=== PATIENT | male | born 1980 | race Caucasian/White ===

== ENCOUNTER 2016-11-01 01:49 | Emergency (ER) | payer SELFPAY ==
[~2016-11-01] VITALS: Ht 162.6 cm; Wt 74.6 kg
[2016-11-01 01:54] VITALS: Ht 162.6 cm; Wt 74.6 kg
--- NOTE | 2016-11-01 03:37 | ERD ---
ER Documentation Chief Complaint Date/Time DATE: 11/01/16 TIME: 03:33 Chief Complaint chest pain since half hour ago HPI This is a 35-year-old male who presents to the ER with chest pain that started an hour and a half ago. Per family members patient's blood pressure went up to 140/90. Blood pressure then went down to 120/90. Patient then began to have sharp chest pain. Chest pain has improved since being in the ER. It is nonexertional. He has not tried anything for the pain. He also felt as if his left hand got numb. She denies any shortness of breath. Patient's brother at age 38 from a heart attack and his father also of a heart attack. Patient does admit to drinking and smoking. ROS 12 point review of systems was done, all negative except per HPI. Allergies Allergies: Coded Allergies: No Known Allergy (Unverified , 11/01/16) PMhx/Soc Medical and Surgical Hx: pt denies Medical Hx, pt denies Surgical Hx History of Surgery: Yes (Appendectomy) Anesthesia Reaction: No Hx Neurological Disorder: No Hx Respiratory Disorders: No Hx Cardiac Disorders: No Hx Psychiatric Problems: No Hx Miscellaneous Medical Probl: No Hx Alcohol Use: Yes Hx Substance Use: No Hx Tobacco Use: Yes Smoking Status: Current every day smoker Physical Exam Vitals Vital Signs Date Time Temp Pulse Resp B/P Pulse Ox O2 Delivery O2 Flow Rate FiO2 11/01/16 01:54 87.8 78 20 121/69 97 Physical Exam GENERAL: The patient is well developed and appropriate for usual state of health , in no apparent distress. HEENT: Atraumatic. Conjunctivae are pink. Pupils equal, round, and reactive to light. Extraocular muscles are grossly intact. Bilateral tympanic membranes are clear with no evidence of erythema, effusion or dulling of the light reflex. The oropharynx is clear with no erythema or exudates. NECK: C-spine is soft and supple. There is no cervical lymphadenopathy. CHEST: Clear to auscultation bilaterally. There are no rales, wheezes or rhonchi. HEART: Regular rate and rhythm. No murmurs, clicks, rubs or gallops. ABDOMEN: Soft, nontender and nondistended. Good bowel sounds. No rebound or guarding. No gross peritonitis. No gross organomegaly or masses. No Murillo sign or McBurney point tenderness. No pulsatile masses. BACK: No midline or flank tenderness. EXTREMITIES: Equal pulses bilaterally. There is no peripheral clubbing, cyanosis or edema. No focal swelling or erythema. Full range of motion. Grossly neurovascularly intact. NEURO: Alert and oriented. Cranial nerves II through XII are intact. Motor strength in all 4 extremities with 5/5 strength. Sensation grossly intact. Normal speech and gait. SKIN: There is no apparent rash or petechia. The skin is warm and dry. Procedures/MDM Differential diagnosis includes but is not limited to; STEMI, dissection, pneumothorax, PE, esophageal rupture, tamponade, pneumonia, pericarditis, GERD, musculoskeletal, endocarditis, anxiety. Patient did have a couple risk factors including family history of early heart attack and smoking. Because of this blood work was going to be done for the patient. EKG was normal at 82 beats per minutes no ST elevation or T-wave inversion. Read by Dr. Allen. Patient decided to leave AGAINST MEDICAL ADVICE. I discussed the risks versus benefits of leaving, his risks include heart attack and even . Patient understands this and he still wishes to leave. Patient signed AGAINST MEDICAL ADVICE form. Patient was fully capable of signing the AMA form was not altered and he was stable enough to make this decision. Patient was advised to return to the ER if symptoms worsen or continue as soon as possible. Departure Diagnosis: Primary Impression: Chest pain ANGELI SHULTZ Nov 01, 2016 03:37
== END 2016-11-01 04:15 | disposition left against medical advice (07) ==
LOC: FTE 01:49
DX: R07.9 Chest pain, unspecified (principal); F17.210 Nicotine dependence, cigarettes, uncomplicated
CPT/HCPCS: 93005

== ENCOUNTER 2018-12-22 20:45 | Emergency (ER) | payer BC ==
[~2018-12-22] VITALS: Wt 77.2 kg
[2018-12-22 21:06] VITALS: BP 115/71; PULSE 79; RESP 22
--- NOTE | 2018-12-22 22:23 | ERD ---
ER Documentation Chief Complaint Chief Complaint [id number]: L side SCHULTZ worse today. no deficits, no VD, not dizzy. amb steady HPI This is a 37-year-old male patient who presents to the emergency room with his family with concern for left parietal headache described as stabbing with a knife, worse headache of his life, reports sudden onset although intermittent, no current headache during examination. Denies photophobia or phonophobia, no blurred vision, no family history of brain cancers or aneurysms, patient is a smoker. No trauma. Patient states he has been having intermittent hypertension. ROS All systems reviewed and are negative except as per history of present illness. Medications Home Meds Active Scripts Ibuprofen* (Motrin*) 600 Mg Tab, 600 MG PO Q6 for pain for 10 Days, #30 TAB Prov:ALMA DELIA MENEZES NP 12/22/18 Allergies Allergies: Coded Allergies: No Known Allergy (Unverified , 11/01/16) PMhx/Soc History of Surgery: Yes (Appendectomy) Anesthesia Reaction: No Hx Neurological Disorder: No Hx Respiratory Disorders: No Hx Cardiac Disorders: No Hx Psychiatric Problems: No Hx Miscellaneous Medical Probl: No Hx Alcohol Use: Yes Hx Substance Use: No Hx Tobacco Use: Yes Smoking Status: Current every day smoker Physical Exam Vitals Vital Signs Date Temp Pulse Resp B/P (MAP) Pulse Ox O2 O2 Flow FiO2 Time Delivery Rate 12/22/18 97.2 79 22 115/71 97 21:06 (86) Physical Exam Const: No acute distress Head: Atraumatic, no crepitus, no hematoma Eyes: Normal Conjunctiva, PERRL ENT: Normal External Ears, Nose and Mouth. Pharynx pink, no lesions, no petechiae Neck: Full range of motion. No meningismus. Resp: Clear to auscultation bilaterally Cardio: Regular rate and rhythm, no murmurs Abd: Soft, non tender, non distended. Normal bowel sounds Skin: No petechiae or rashes Back: No midline or flank tenderness Ext: No cyanosis, or edema Neur: Awake and alert, EOMI, CNII-XII, clear speech, steady gait Psych: Normal Mood and Affect Procedures/MDM This is a 37-year-old male patient who presents to the emergency room with complaint of left parietal headache described as worse of his life times 1 day. ED COURSE: The patient was stable throughout ED course. DIAGNOSTIC IMAGING: Read by radiologist. No evidence of acute intracranial pathology. The brain is normal in appearance. MEDICATIONS GIVEN: None. Reassessment of patient shows him walking up and down the hallways, NAD, no dizziness, no headache, no stabbing headache occurring during ED course. Patient now revealing that he does not get much sleep, is not drinking enough fluid, has been drinking alcohol. And does not have very good self-care. Patient was instructed on improving self-care including adequate sleep, avoiding caffeine alcohol and cigarettes, increasing hydration, managing stress. MDM: MDM: The patient was well-appearing with VSS and without neurological deficits at time of reevaluation and discharge. Clinical and diagnostic exam not suggestive of infection, intracranial process, SAH, SDH, neoplasm, meningitis, encephalitis, aneurysm, thrombus, temporal arteritis, sinusitis. The patient has been provided with instructions on self-care including use of analgesia, reducing triggers, and need for close follow-up with primary care physician within 1-2 days for reevaluation. The patient has been instructed to return immediately for worsening symptoms, change in pattern of current symptoms, or other acute problems. DISPOSITION: The patient has been discharge home to follow-up with community physician. Departure Diagnosis: Primary Impression: Headache Condition: Stable Patient Instructions: Headache, Migraine (Classical) Referrals: [facility] Additional Instructions: Thank you very much for allowing us to participate in your care. Your health and safety is our top priority at [facility]. Call your primary care doctor TOMORROW for an appointment during the next 2-4 days and bring all the information and medications prescribed. Have prescriptions filled and follow precisely the directions on the label. If the symptoms get worse and your provider is unavailable, return to the Emergency Department immediately. Use ibuprofen for headache pain. Increase hydration, you have been provided with referral for neurologist for further consult. Bring copy of CT reading to your next doctor's appointment ALMA DELIA MENEZES NP Dec 22, 2018 22:23
[2018-12-22] MEDS ORDERED: IBUP-1542 PO (23:52)
== END 2018-12-23 00:07 | disposition home or self-care (01) ==
LOC: FTE 20:45
DX: R51 Headache (principal); F17.210 Nicotine dependence, cigarettes, uncomplicated; I10 Essential (primary) hypertension
CPT/HCPCS: 70450